=== PATIENT | male | born 1955 | race Caucasian/White ===

== ENCOUNTER 2024-04-22 15:14 | Emergency (ER) | payer OTHER, MEDICARE ==
[2024-04-22 15:32] LABS: BASOPHILS PERCENT AUTO 0.1 % (0.2-1.2); EOSINOPHILS ABSOLUTE AUTO 0.1 x10^3/uL (0.0-0.5); EOSINOPHILS PERCENT AUTO 1.5 % (0.0-4.0); HEMATOCRIT 44.4 % (40.0-52.0); HEMOGLOBIN 15.8 g/dL (14.0-18.0); IMMATURE GRAN ABSOLUTE AUTO 0.02 x10^3/uL (0.00-0.07); LYMPHOCYTES ABSOLUTE AUTO 1.3 x10^3/uL (1.0-4.8); LYMPHOCYTES PERCENT AUTO 14.9 % (25.0-50.0); MEAN CORPUSCULAR HGB CONC 35.6 g/dL (32.0-36.0); MEAN CORPUSCULAR VOLUME 81.6 fL (78.0-93.0); MONOCYTES ABSOLUTE AUTO 0.6 x10^3/uL (0.0-0.8); MONOCYTES PERCENT AUTO 6.5 % (2.0-11.0); NEUTROPHILS ABSOLUTE AUTO 6.7 x10^3/uL (1.8-7.7); NEUTROPHILS PERCENT AUTO 76.8 % (50.0-80.0); PLATELET COUNT,PLT 241 x10^3/uL (130-400); RED BLOOD CELL COUNT 5.44 x10^6/uL (4.5-6.0); WHITE BLOOD CELL COUNT,WBC 8.7 x10^3/uL (4.0-10.0)
[2024-04-22 15:52] LABS: PROTHROMBIN TIME 9.7 SEC (8.9-11.5)
[2024-04-22] MEDS ORDERED: Lidocaine 1% 10 ML MDV INJECT ONE (15:55)
[2024-04-22 15:57] LABS: A/G RATIO 1.18; ALANINE AMINOTRANSFERASE,ALT 90 U/L (16-63); ALKALINE PHOSPHATASE 74 U/L (46-116); ASPARTATE AMNIOTRANSFERASE,AST 54 U/L (15-37); BILIRUBIN TOTAL 0.7 mg/dL (0.2-1.0); BLOOD UREA NITROGEN,BUN 16 mg/dL (7-18); CALCIUM 9.5 mg/dL (8.5-10.1); CARBON DIOXIDE,CO2 26 mmol/L (21-32); CHLORIDE,CL 100 mmol/L (98-107); CREATININE 1.1 mg/dL (0.70-1.30); GLUCOSE RANDOM 156 mg/dL (70-99); POTASSIUM,K 3.5 mmol/L (3.5-5.1); PROTEIN TOTAL,TP 7.4 g/dL (6.4-8.2); SODIUM,NA 138 mmol/L (136-145)
[2024-04-22 15:58] LABS: ANION GAP 15.5 mmol/L (5-15); ESTIMATED GFR 74 mL/min (>=60)
[2024-04-22] MEDS: Iopamidol 612 MG/ML 100 ML Bottle IVPUSH ONE (16:09)
[2024-04-22] MEDS: Diphtheria,Pertussis(Acell),Tetanus Vaccine 0.5 ML Syringe IM ONE (16:30)
[2024-04-22] MEDS: Fluorescein 1 MG Ophth Strip EYERT ONE (17:58)
[2024-04-22] MEDS: Proparacaine 0.5% Ophth Soln 15 ML Bottle EYERT PRN (17:58)
[2024-04-22] MEDS: Acetaminophen 500 MG Tab PO ONE (18:12)
[2024-04-22] MEDS: Morphine 2 MG/ML SYRINGE IVPUSH ONE (18:12)
[2024-04-22] MEDS ORDERED: Dexamethasone/Tobramycin 0.1-0.3% Ophth Oint 3.5 GM Tube EYERT SCH (18:30)
[2024-04-22] MEDS: Dexamethasone/Tobramycin 0.1-0.3% Ophth Susp 2.5 ML Bottle EYERT SCH (19:40)
[2024-04-22] MEDS: Ketorolac 30 MG/ML SDV IVPUSH ONE (19:48)
== END 2024-04-22 19:56 | disposition home or self-care (01) ==
LOC: VM.ED 15:14
DX: S16.1XXA Strain of muscle, fascia and tendon at neck level, initial encounter (principal); S05.01XA Injury of conjunctiva and corneal abrasion without foreign body, right eye, initial encounter; S00.83XA Contusion of other part of head, initial encounter; S60.511A Abrasion of right hand, initial encounter; Z79.899 Other long term (current) drug therapy; Z88.5 Allergy status to narcotic agent; Z23 Encounter for immunization; V49.40XA Driver injured in collision with unspecified motor vehicles in traffic accident, initial encounter; Y92.410 Unspecified street and highway as the place of occurrence of the external cause
CPT/HCPCS: 36415; 70450; 71260; 72125; 80053; 80307; 85025; 85610; 90471; 90715; 96374; 96375; 99284; 99284-25; A9270-GY; J1885; J2270; J3490; Q9967